=== PATIENT | female | born 2000 | race Caucasian/White ===

== ENCOUNTER → 2018-10-11 | Outpatient (CLI) | payer BC ==
--- NOTE | 2018-10-11 16:52 | RADIOLOGY IMAGING REPORT ---
FACILITY: [facility] PATIENT NAME: Pearl Bautista : 2000 MR: [id number] V: [id number] EXAM DATE: ORDERING PHYSICIAN: RAFAELA KHAN TECHNOLOGIST: Location: [facility] [place] Patient: Pearl Bautista : 2000 Visit/Account:[id number] Date of Sevice: 10/11/2018 HUMERUS LEFT Indication: Unable to palpate Nexplanon. Comparison: None Available Findings: There is no evidence of fracture, dislocation, or acute osseous abnormality of the left humerus. No b myah lesions or periosteal abnormality. There is no focal soft tissue abnormality. The linear radiopaque density consistent with the Nexplanon is visualized in the left mid arm subcuta neous tissues within the medial anterior aspect. IMPRESSION: 1. The Nexplanon implant is visualized in the subcutaneous tissues of the left midarm in the medial a nterior aspect. 2. No acute osseous abnormality of the left humerus I called report to RAFAELA KHAN at 10/11/2018 4:43 PM. Report Dictated By: Uli Pollard at 10/11/2018 4:37 PM Report E-Signed By: Uli Pollard at 10/11/2018 4:48 PM WSN:[id number]
== END ==
LOC: RAD 15:37
PROVIDERS: ATTEND Nurse Practitioner
DX: Z30.46 Encounter for surveillance of implantable subdermal contraceptive (principal)